=== PATIENT | male | born 1955 | race African-American/Black ===

== ENCOUNTER 2016-12-29 21:51 | Emergency (ER) | payer MEDICARE, MEDICAID ==
[~2016-12-29] VITALS: Ht 188 cm; Wt 125.0 kg
[2016-12-29] MEDS ORDERED: SPIR25 PO (21:59)
[2016-12-29] MEDS ORDERED: METF500T4 PO (21:59)
[2016-12-29] MEDS ORDERED: INSLAN SQ (21:59)
[2016-12-29] MEDS ORDERED: LOSA25TA21 PO (21:59)
[2016-12-29] MEDS ORDERED: ALLO300 PO (21:59)
[2016-12-29] MEDS ORDERED: ATOR10TA84 PO (21:59)
[2016-12-29] MEDS ORDERED: AMLO-512 PO (21:59)
[2016-12-29] MEDS ORDERED: METO25 PO (21:59)
[2016-12-29] MEDS ORDERED: OxyCODONE HCL/ACETAMINOPHEN 5-325 MG TABLET PO ONE (22:30)
[2016-12-29] MEDS ORDERED: BUPIVACAINE HCL/PF 0.5% 10 ML VIAL SQ ONE (22:30)
[2016-12-29 23:12] VITALS: BP 153/98
== END 2016-12-29 23:15 | disposition home or self-care (01) ==
LOC: EMS 21:54
DX: S02.5XXA Fracture of tooth (traumatic), initial encounter for closed fracture (principal); I11.0 Hypertensive heart disease with heart failure; I50.9 Heart failure, unspecified; E11.9 Type 2 diabetes mellitus without complications; E78.00 Pure hypercholesterolemia, unspecified; F12.90 Cannabis use, unspecified, uncomplicated; Z79.4 Long term (current) use of insulin; X58.XXXA Exposure to other specified factors, initial encounter; Y93.89 Activity, other specified; Y92.89 Other specified places as the place of occurrence of the external cause; Y99.8 Other external cause status
CPT/HCPCS: 64450; 82962; 99284; J3490